=== PATIENT | female | born 1960 | race Caucasian/White ===

== ENCOUNTER 2023-08-23 20:22 | Outpatient (CLI) | payer OTHER, SELFPAY | END 2023-08-23 20:23 | disposition home or self-care (01) | LOC: AMB 09-02 03:07 | PROVIDERS: PCP Family Medicine; Visit Provider Family Medicine | DX: R55 Syncope and collapse (principal) | CPT/HCPCS: A0998 ==

== ENCOUNTER 2023-08-23 21:10 | Emergency (ER) | payer OTHER, SELFPAY ==
[2023-08-23 21:11] VITALS: BP 100/61; BP 106/57; BP 110/67; PULSE 60; PULSE 68
[2023-08-23 21:20] VITALS: BP 106/57; PULSE 60; RESP 16; O2SAT 98; BMI 21.3
--- NOTE | 2023-08-23 21:31 | ED.SYNCOPE ---
HPI - Syncope General Time Seen by Provider: 21:31 Date Seen: 08/23/23 Chief Complaint: Syncope/Fainted Stated Complaint: syncope Time Seen by Provider: 08/23/23 21:30 Source: patient and RN notes reviewed Mode of arrival: ambulatory Limitations: no limitations History of Present Illness HPI narrative: This 63yo female is ambulatory into the ED with concern of syncopal episodes that happened tonight, she is accompanied by her . She was out to eat with her and friends tonight, was eating a bit later than usual, did have some cookies at home before going out. At the dinner table, she had gotten through about half of her burger. She started to feel warm, nauseated, her states she looked flushed, felt warm, had 2 brief episodes where she went out. She did not hit her head, there was no trauma. She states when she started to feel warm and nauseated, she felt like she might need to have a bowel movement or throw up. She was not having abdominal pain, no chest pain, no respiratory symptoms. She states she felt fine prior, went for her usual walk today. She does remember about a month ago 1 morning when she woke up, did not even feel like having her morning coffee which is unusual. She actually had an emesis, thought she just had a little GI bug. She has been fine in the interim. She just feels weak now. EMS did respond, she was able to walk from the table with her accompanying her, did go into the bathroom and have a large bowel movement, non diarrheal. She walked from the restaurant into the ambulance, had a large emesis in there. She did not come with the ambulance but they did advise her that they thought she should be evaluated, women can present atypically with heart disease. She herself has never had any heart issues. She states she just had an insurance exam and her carotids in her abdominal ultrasound were normal. She does note that her cholesterol runs a little high but her protective or HDL cholesterol is high. There is some family history of heart issues. She is on levothyroxine for hypothyroidism, recently had her levels checked. She is having no abdominal pain, only symptom now is weakness. She had 1 alcoholic beverage. did bring up that patient has fainted a couple of times with blood donation. Related Data Home Medications Medication Instructions Recorded Confirmed levothyroxine .ROUTE 08/23/23 Allergies Allergy/AdvReac Type Severity Reaction Status Date / Time No Known Drug Allergies Allergy Verified 08/23/23 21:23 Review of Systems Status of ROS: Reports: 6 or more systems reviewed and unremarkable except as noted in History and below [facility] Medical History (Updated 08/23/23 @ 23:06 by Bianca Navas MD) Hypothyroidism ?E03.9 - Hypothyroidism, unspecified (ICD-10) Social History Smoking Status: Never smoker Second hand tobacco smoke exposure: No How often do you have a drink containing alcohol: never AUDIT-C Alcohol total score: 0 Non-prescribed substance use: denies use Exam Const: Vital Signs, click to edit/add: Vital Signs - 24 hr 08/23/23 21:11 08/23/23 21:20 08/23/23 21:39 Temperature Pulse Rate [Pulse Oximeter] 60 Pulse Rate [orthos tatic lying Pulse Oximeter] 60 Pulse Rate [orthos tatic sitting Puls e Oximeter] 60 Pulse Rate [orthos tatic standing Pul se Oximeter] 68 Respiratory Rate 16 Blood Pressure [Ri ght Upper Arm] 106/57 L Blood Pressure [or thostatic lying Ri ght Arm] 106/57 L Blood Pressure [or thostatic sitting Right Arm] 110/67 Blood Pressure [or thostatic standing Right Arm] 100/61 Pulse Oximetry 98 99 Oxygen Delivery Me thod Room Air 08/23/23 23:07 Temperature 98.2 F Pulse Rate [Pulse Oximeter] 58 L Pulse Rate [orthos tatic lying Pulse Oximeter] Pulse Rate [orthos tatic sitting Puls e Oximeter] Pulse Rate [orthos tatic standing Pul se Oximeter] Respiratory Rate 14 Blood Pressure [Ri ght Upper Arm] 101/58 L Blood Pressure [or thostatic lying Ri ght Arm] Blood Pressure [or thostatic sitting Right Arm] Blood Pressure [or thostatic standing Right Arm] Pulse Oximetry 99 Oxygen Delivery Me thod Room Air Patient is ambulatory into the ED of her own accord. Nursing staff did check orthostatic vitals and she was not orthostatic on arrival. She is alert, interactive, no apparent distress. Conjugate gaze, pupils equal and round, sclera clear. Symmetrical facial function. Speech normal. Neck is supple, no adenopathy, no jugular venous distension. Patient is able to sit up, lungs clear, good air entry, no wheezing or crackles. CV regular rate and rhythm, no murmur, normal S1-S2, no S3-S4. Abdomen is soft, nontender, nondistended, bowel sounds present. She has no lower extremity edema. Skin visualized without rash. Documenting provider has reviewed patient's vital signs: yes Course Course ED Course: Her arrival orthostatics and initial EKG are reassuring. We did discuss that with the GI symptoms she was having, do think that this could be vasovagal syncope stemming from GI stimulation. We will have her on cardiac monitoring, pulse oximetry, do full complement of labs including troponin. She understands the 3 hour troponin from the onset of symptoms, her thinks it was between 8-830 that this happened tonight. They understand that I will recommend a 3 hour troponin which will be around 11 30 this evening. She will let us know if she has any other symptoms while here. This patient is completely neurologically intact, do not think a head CT is necessary at all, this certainly does not have any symptomatology suggestive of a stroke. Reevaluation(s) Time of Reevaluation #1: 22:54 Reevaluation #1: Patient is stable, no arrhythmia on her monitor. She just feels weak, no other symptoms. We reviewed her labs up to this point are quite reassuring. D-dimer was normal, 1st troponin normal. We did review her mildly low hemoglobin at 11.4. She has not done any blood donation recently. This should be followed up outpatient. Vital Signs Vital signs: Initial Vital Signs Pulse Rate 60 08/23/23 21:11 Blood Pressure 106/57 L 08/23/23 21:11 Vital Signs Pulse Rate 60 08/23/23 21:11 Blood Pressure 106/57 L 08/23/23 21:11 Temperature 98.2 F 08/23/23 23:07 Pulse Rate 58 L 08/23/23 23:07 Respiratory Rate 14 08/23/23 23:07 Blood Pressure 101/58 L 08/23/23 23:07 Pulse Oximetry 99 08/23/23 23:07 Oxygen Delivery Method Room Air 08/23/23 23:07 MDM - Syncope Lab Data Attestation: I reviewed the patient's lab results. Labs: Lab Results 08/23/23 08/23/23 08/23/23 Range/Units 21:40 21:54 23:15 WBC 6.85 (4.50-11.00) K/uL RBC 4.03 (4.00-5.20) m/uL Hgb 11.4 L (12.0-16.0) gm/dL Hct 34.9 (33.0-51.0) % MCV 87 (80-100) fL MCH 28 (26-34) pg MCHC 33 (32-36) gm/dL RDW Coeff of Martinez 14.2 (11.5-15.5) % Plt Count 399 (140-440) K/uL Neut % (Auto) 53.4 (42.0-72.0) % Lymph % (Auto) 38.7 (20-44) % [place] % (Auto) 5.4 (0.0-11.0) % Eos % (Auto) 1.8 (0.0-7.0) % Baso % (Auto) 0.7 (0.0-3.0) % Neut # (Auto) 3.66 (1.7-7.0) K/uL Lymph # (Auto) 2.65 (0.90-2.90) K/uL [place] # (Auto) 0.40 (0.00-0.90) K/UL Eos # (Auto) 0.12 (0.00-0.50) K/uL Baso # (Auto) 0.05 (0.00-0.30) K/uL Abs Immat Gran (auto) 0.00 (0.00-0.30) K/uL Imm/Tot Granulo (auto) 0.0 % D-Dimer Quant (PE/DVT) 0.35 (0.00-0.50) ug/ml Sodium 140 (135-149) mmol/L Potassium 3.7 (3.6-5.1) mmol/L Chloride 107 (96-114) mmol/L Carbon Dioxide 31 (20-32) mmol/L Anion Gap 2 L (7-15) mEq/L BUN 12 (7-30) mg/dL Creatinine 0.8 (0.5-1.5) mg/dL Estimated Creat Clear 58.48 Estimated GFR 83 ml/min Glucose 109 (60-115) mg/dL Lactate 1.2 (0.5-1.9) mmol/L Calcium 8.9 (8.4-10.6) mg/dL Total Bilirubin 0.5 (0.1-1.5) mg/dL Direct Bilirubin 0.0 (0.0-0.5) mg/dL AST 31 (12-35) U/L ALT 17 (4-35) U/L Alkaline Phosphatase 54 (40-150) U/L Troponin I < 0.01 L (0.01-0.04) ng/mL C-Reactive Protein < 0.5 L (0.5-1.0) mg/dL NT-Pro-B Natriuret Pep 25 pg/mL Total Protein 7.2 (6.0-8.3) g/dL Albumin 4.2 (3.3-5.0) g/dL SARS-CoV-2 (PCR) Negative SARS-CoV-2 (Negative) Influenza Type A (PCR) Negative PCR FLU A (Negative) Influenza Type B (PCR) Negative PCR FLU B (Negative) RSV (PCR) Negative PCR RSV (Negative) POC Troponin I 0.00 L (0.01-0.04) ng/ml ECG Data Attestation: I personally reviewed and interpreted this ECG as follows: ( Sinus bradycardia, 59 beats per minute. No ischemic change, QT corrected 445 milliseconds.) ECG interpretation date: 08/23/23 ECG interpretation time: 21:44 Prior ECG tracings: not available for review Interpretation: Follow-up EKG timed 11:22 p.m. shows sinus bradycardia, 56 beats per minute. No acute changes, no ischemia or infarct noted. Discharge Plan Discharge Clinical Impression: Syncope Qualifiers: Syncope type: vasovagal syncope Qualified Code(s): R55 - Syncope and collapse Patient Disposition: Home, Self-Care Condition: Stable Instructions: Syncope (ED) Additional Instructions: Hemoglobin was just very minimally low at 11.4. I would have this rechecked with your primary care provider with in the next month. It is possible that this may just be your level but is something that should be rechecked. Your primary care provider can look into this further if you are mildly anemic. As far as your syncopal episode, certainly sounds that it was consistent with potential vasovagal syncope associated with your GI symptoms. Do recommend that you talk to her primary care provider about this further. If you have further concerns, changes in your health status, we always recommend re-evaluation. Prescriptions: No Action levothyroxine [Synthroid] .ROUTE Follow Up/Referrals: Adwoa Avila MD [Primary Care Provider] - Stand Alone Forms: [employer] Info Instructions
[2023-08-23 21:39] VITALS: O2SAT 99
[2023-08-23 21:58] LABS: Lactate* 1.2 mmol/L (0.5-1.9)
[2023-08-23 22:01] LABS: Basophils Absolute Auto 0.05 K/uL (0.00-0.30); Basophils Percent Auto 0.7 % (0.0-3.0); Eosinophils Absolute Auto 0.12 K/uL (0.00-0.50); Eosinophils Percent Auto 1.8 % (0.0-7.0); Hematocrit 34.9 % (33.0-51.0); Hemoglobin* 11.4 gm/dL (12.0-16.0); Lymphocytes Absolute Auto 2.65 K/uL (0.90-2.90); Lymphocytes Percent Auto 38.7 % (20-44); Mean Corpuscular HGB Conc 33 gm/dL (32-36); Mean Corpuscular Hemoglobin 28 pg (26-34); Mean Corpuscular Volume 87 fL (80-100); Monocytes Percent Auto 5.4 % (0.0-11.0); Neutrophils Absolute Auto 3.66 K/uL (1.7-7.0); Neutrophils Percent Auto 53.4 % (42.0-72.0); Platelet Count* 399 K/uL (140-440); RDW Coefficient of Variation % 14.2 % (11.5-15.5); Red Blood Count 4.03 m/uL (4.00-5.20); White Blood Count* 6.85 K/uL (4.50-11.00)
[2023-08-23 22:03] LABS: Slide Review Reflex No
[2023-08-23 22:13] LABS: Albumin* 4.2 g/dL (3.3-5.0); Chloride* 107 mmol/L (96-114)
[2023-08-23 22:14] LABS: Potassium* 3.7 mmol/L (3.6-5.1); Sodium* 140 mmol/L (135-149)
[2023-08-23 22:16] LABS: Creatinine* 0.8 mg/dL (0.5-1.5); Est. Creatinine Clearance* 58.48; Estimated Glomerular Filt Rate 83 ml/min
[2023-08-23 22:17] LABS: Alanine Aminotransferase* 17 U/L (4-35); Alkaline Phosphatase* 54 U/L (40-150); Anion Gap 2 mEq/L (7-15); Aspartate Amino Transferase* 31 U/L (12-35); Bilirubin Total* 0.5 mg/dL (0.1-1.5); Blood Urea Nitrogen* 12 mg/dL (7-30); Calcium* 8.9 mg/dL (8.4-10.6); Carbon Dioxide* 31 mmol/L (20-32); Glucose* 109 mg/dL (60-115); Total Protein* 7.2 g/dL (6.0-8.3)
[2023-08-23 22:19] LABS: D Dimer Quantitative* 0.35 ug/ml (0.00-0.50)
[2023-08-23 22:21] LABS: C Reactive Protein* < 0.5 mg/dL (0.5-1.0)
[2023-08-23 22:33] LABS: NT Pro B Type NatriureticPept* 25 pg/mL; Troponin I* < 0.01 ng/mL (0.01-0.04)
[2023-08-23 22:38] LABS: PCR FLU A Negative PCR FLU A (Negative); PCR FLU B Negative PCR FLU B (Negative); PCR RSV Negative PCR RSV (Negative); SARS PCR* Negative SARS-CoV-2 (Negative)
[2023-08-23 23:07] VITALS: BP 101/58; PULSE 58; RESP 14; TEMP 36.8; O2SAT 99
== END 2023-08-23 23:47 | disposition home or self-care (01) ==
PROVIDERS: Emergency Provider Family Medicine; PCP Family Medicine
DX: R55 Syncope and collapse (principal)
CPT/HCPCS: 36415; 80053; 82248; 83605; 83880; 84484; 85025; 85379; 86140; 87631; 93005; 94761; 99284